=== PATIENT | male | born 1995 | race Caucasian/White ===

== ENCOUNTER 2022-10-22 03:52 | Inpatient (IN) | payer OTHER ==
[~2022-10-22] VITALS: Ht 177.8 cm; Wt 104.5 kg
[2022-10-22] MEDS ORDERED: NAPR-849 PO (04:22)
[2022-10-22] MEDS ORDERED: ALEV220T22 PO (04:22)
[2022-10-22] MEDS ORDERED: NS 3,070 ML in IV 1 EA IV ONE (08:10)
[2022-10-22] MEDS ORDERED: KETOROLAC 30 MG/ML 1ML VIAL IV ONE (08:10)
[2022-10-22] MEDS ORDERED: ONDANSETRON 4MG 2ML VIAL IV ONE (08:10)
[2022-10-22] MEDS ORDERED: GI COCKTAIL 50ML BTL(HYOSCYAMINE/MAALOX/LIDOCAINE VISCOUS)(1:3:1) PO ONE (08:10)
[2022-10-22 08:46] LABS: BASO # 0.1 10^3/uL (0.0-0.2); BASO % 0.7 % (0.0-1.0); EOS % 0.1 % (0.0-3.0); HEMATOCRIT 43.6 % (42.0-52.0); HEMOGLOBIN 14.6 g/dl (13.5-17.5); LYMPH # 3.9 10^3/uL (1.5-5.0); LYMPH % 39.8 % (24.0-44.0); MEAN CORPUSCULAR HEMOGLOBIN 29.7 pg (27.0-33.0); MEAN CORPUSCULAR HGB CONC 33.5 g/dl (32.0-36.5); MEAN CORPUSCULAR VOLUME 88.8 fl (80.0-96.0); MONO # 1.1 10^3/uL (0.0-0.8); MONO % 10.6 % (2.0-8.0); NEUTROPHILS # 4.8 10^3/uL (1.5-8.5); NEUTROPHILS % 48.4 % (36.0-66.0); PLATELET COUNT, AUTOMATED 194 10^3/uL (150-450); RED BLOOD COUNT 4.91 10^6/uL (4.30-6.10); WHITE BLOOD COUNT 9.9 10^3/uL (4.0-10.0)
[2022-10-22] MEDS ORDERED: ISOVUE-370 76% 100ML VIAL As Ordered ONE (08:59)
[2022-10-22 09:26] LABS: ERYTHROCYTE SEDIMENTATION RATE 19 mm/hr (0-15)
[2022-10-22] MEDS ORDERED: AMPICILLIN SOD/SULBACTAM SOD 1.5 GM in D5W MINI-BAG PLUS 50 ML IV ONE (09:55)
[2022-10-22] MEDS ORDERED: HOME MED LIST COMPLETE! XX SCH (10:05)
[2022-10-22] MEDS ORDERED: ACETAMINOPHEN TAB 650MG DOSE (2X325MG) PO PRN (11:35)
[2022-10-22] MEDS ORDERED: PERCOCET 5MG/325MG TAB PO PRN (11:35)
[2022-10-22] MEDS: D5W/0.45% SODIUM CHLORIDE 1,000 ML IV SCH ×2 (12:13→21:56)
[2022-10-22] MEDS ORDERED: HYDROMORPHONE HCL 0.5 MG/ 0.5 ML SYRINGE IV ONE (12:15)
[2022-10-22] MEDS: KETOROLAC 30 MG/ML 1ML VIAL IV SCH ×2 (15:56→21:56)
[2022-10-22] MEDS ORDERED: AMPICILLIN SOD/SULBACTAM SOD 1.5 GM in D5W MINI-BAG PLUS 50 ML IV SCH (16:00)
[2022-10-22] MEDS: AMPICILLIN SOD/SULBACTAM SOD 3 GM in D5W MINI-BAG PLUS 100 ML IV SCH ×2 (16:00→21:56)
[2022-10-22 18:05] VITALS: BP 124/83
[2022-10-22 19:48] VITALS: BP 127/66
[2022-10-22 23:56] VITALS: BP 128/73
[2022-10-23] MEDS: AMPICILLIN SOD/SULBACTAM SOD 3 GM in D5W MINI-BAG PLUS 100 ML IV SCH ×4 (03:17→20:41)
[2022-10-23] MEDS: KETOROLAC 30 MG/ML 1ML VIAL IV SCH ×4 (03:18→20:42)
[2022-10-23 03:53] VITALS: BP 126/72
[2022-10-23 05:33] LABS: HEMATOCRIT 46.9 % (42.0-52.0); HEMOGLOBIN 15.2 g/dl (13.5-17.5); MEAN CORPUSCULAR HEMOGLOBIN 29.1 pg (27.0-33.0); MEAN CORPUSCULAR HGB CONC 32.4 g/dl (32.0-36.5); MEAN CORPUSCULAR VOLUME 89.8 fl (80.0-96.0); PLATELET COUNT, AUTOMATED 203 10^3/uL (150-450); RED BLOOD COUNT 5.22 10^6/uL (4.30-6.10); WHITE BLOOD COUNT 9.4 10^3/uL (4.0-10.0)
[2022-10-23 05:51] LABS: BLOOD UREA NITROGEN 16 MG/DL (9-23); CALCIUM LEVEL 9.2 MG/DL (8.5-10.1); CARBON DIOXIDE LEVEL 23 MMOL/L (20-31); CHLORIDE LEVEL 109 MMOL/L (98-107); CREATININE FOR GFR 0.64 MG/DL (0.70-1.30); GLOMERULAR FILTRATION RATE > 60.0 (>60); GLUCOSE, FASTING 151 MG/DL (60-100); POTASSIUM SERUM 4.7 MMOL/L (3.5-5.1); SODIUM LEVEL 144 MMOL/L (136-145)
[2022-10-23 06:20] LABS: ATYPICAL LYMPH 7 % (0-5); LYMPHOCYTES 18 % (16-44); MONOCYTES 9 % (0-5); NEUTROPHILS 66 % (28-66); PLATELET ESTIMATE NORMAL (NORMAL)
[2022-10-23 08:00] VITALS: BP 126/69
[2022-10-23] MEDS: PANTOPRAZOLE 40MG VIAL IV SCH (08:50)
[2022-10-23 12:00] VITALS: BP 126/68
[2022-10-23] MEDS: D5W/0.45% SODIUM CHLORIDE 1,000 ML IV SCH (17:53)
[2022-10-23 20:00] VITALS: BP 139/80
[2022-10-24] MEDS: KETOROLAC 30 MG/ML 1ML VIAL IV SCH ×2 (03:00→08:33)
[2022-10-24 03:32] VITALS: BP 127/60
[2022-10-24 05:36] LABS: BASO % 0.2 % (0.0-1.0); HEMATOCRIT 41.2 % (42.0-52.0); HEMOGLOBIN 13.7 g/dl (13.5-17.5); LYMPH # 1.8 10^3/uL (1.5-5.0); LYMPH % 13.7 % (24.0-44.0); MEAN CORPUSCULAR HEMOGLOBIN 29.3 pg (27.0-33.0); MEAN CORPUSCULAR HGB CONC 33.3 g/dl (32.0-36.5); MONO # 0.6 10^3/uL (0.0-0.8); MONO % 4.5 % (2.0-8.0); NEUTROPHILS # 10.5 10^3/uL (1.5-8.5); NEUTROPHILS % 81.1 % (36.0-66.0); PLATELET COUNT, AUTOMATED 248 10^3/uL (150-450); RED BLOOD COUNT 4.68 10^6/uL (4.30-6.10)
[2022-10-24] MEDS: AMPICILLIN SOD/SULBACTAM SOD 3 GM in D5W MINI-BAG PLUS 100 ML IV SCH ×3 (05:41→13:41)
[2022-10-24] MEDS: D5W/0.45% SODIUM CHLORIDE 1,000 ML IV SCH (05:45)
[2022-10-24 06:00] LABS: BLOOD UREA NITROGEN 19 MG/DL (9-23); CALCIUM LEVEL 8.8 MG/DL (8.5-10.1); CARBON DIOXIDE LEVEL 26 MMOL/L (20-31); CHLORIDE LEVEL 108 MMOL/L (98-107); CREATININE FOR GFR 0.58 MG/DL (0.70-1.30); GLOMERULAR FILTRATION RATE > 60.0 (>60); GLUCOSE, FASTING 146 MG/DL (60-100); POTASSIUM SERUM 4.1 MMOL/L (3.5-5.1); SODIUM LEVEL 142 MMOL/L (136-145)
[2022-10-24 08:00] VITALS: BP 133/80
[2022-10-24] MEDS ORDERED: PENI500T PO (08:01)
[2022-10-24] MEDS ORDERED: BACI1CAP PO (08:02)
[2022-10-24] MEDS: PANTOPRAZOLE 40MG VIAL IV SCH (08:33)
[2022-10-24] MEDS ORDERED: PRED10TA2 PO (11:53)
== END 2022-10-24 14:24 | disposition home or self-care (01) | DRG 153 ==
LOC: M ED 03:52 → M ED INP 11:33 → ENRESERV 15:36 → M PCU 17:51
PROVIDERS: ADMIT General Practice; ATTEND General Practice
DX: J36 Peritonsillar abscess (principal); B95.4 Other streptococcus as the cause of diseases classified elsewhere; R13.10 Dysphagia, unspecified; Z87.891 Personal history of nicotine dependence; Z91.030 Bee allergy status